=== PATIENT | female | born 1945 | race Caucasian/White ===

== ENCOUNTER 2018-06-05 09:23 | Outpatient (CLI) | payer BC | END 2018-06-05 09:24 | disposition home or self-care (01) | LOC: C.VASC 09:23 → C.PAT 09:24 | DX: N18.6 End stage renal disease (principal) ==

== ENCOUNTER 2018-06-10 06:32 | Day surgery (SDC) | payer BC ==
[2018-06-05 09:41] VITALS: BMI 22.0
[2018-06-10] MEDS ORDERED: ceFAZolin 1 gm in NS 1 GM/100 ML BAG IVPB ONE (07:05)
[2018-06-10] MEDS ORDERED: HEPARIN-NS 5,000 UNITS/500 ML 5,000 UNIT/500 ML BAG IV ONE (07:06)
[2018-06-10] MEDS ORDERED: Midazolam 2 MG/2 ML VIAL ONE (07:50)
[2018-06-10] MEDS ORDERED: Propofol 10 mg/ml Inj (20 ML) ONE (07:50)
[2018-06-10] MEDS ORDERED: Lidocaine Hydrochloride 5 ML INJ ONE (08:35)
[2018-06-10] MEDS ORDERED: Phenylephrine 10 mg/ml Inj ONE (08:35)
[2018-06-10] MEDS ORDERED: HYDROmorphone 0.5 mg/0.5 ml ISec IVP PRN (09:51)
--- NOTE | 2018-06-10 09:51 | PCM.SURG1 ---
Surgeon's Initial Post Op Note - Surgeon's Notes Surgeon: corey Olive Grader: 0 Type of Anesthesia: General LMA Anesthesia Administered By: jl Pre-Operative Diagnosis: renal failure Operative Findings: adequate vein. small artery Post-Operative Diagnosis: same Operation Performed: brachio cephalic av fistula left elbow Specimen/Specimens Removed: 0 Estimated Blood Loss: EBL {In ML}: 50 Blood Products Given: N/A Drains Used: No Drains Post-Op Condition: Good Date of Surgery/Procedure: 06/10/18 Time of Surgery/Procedure: 09:51
[2018-06-10 11:32] VITALS: BP 141/56; PULSE 85; RESP 18; TEMP 97; O2SAT 99
--- NOTE | 2018-06-10 18:58 | OP ---
PROCEDURE DATE: 06/10/2018 PREOPERATIVE DIAGNOSIS: Renal failure. POSTOPERATIVE DIAGNOSIS: Renal failure. PROCEDURE CARRIED OUT: Brachiocephalic fistula, left elbow. SURGEON: Clay Ren Jr., MD TYPING BOOKKEEPER: Resident. ANESTHESIOLOGIST: Dr. Jacobs. INDICATIONS: The patient is a 72-year-old woman with renal insufficiency, not yet on dialysis. OPERATIVE FINDINGS: A preoperative vein mapping did not reveal adequate veins with the fistula, nonetheless after the patient was anesthetized, particularly the cephalic vein system in the left arm appeared to be of decent size. The major problem was the artery, it was relatively small. Nonetheless, at the end of the procedure, we had a palpable pulse at the wrist and we had good flow through the fistula. DESCRIPTION OF PROCEDURE: The patient was given general anesthesia and intravenous antibiotics. The vein was marked out and the artery was marked adjacent to it. Anesthesia was given systemically, antibiotics were given systemically. We then made an incision. We anastomosed these in an end-to-side fashion using loupe magnification, heparin anticoagulation, and vessel loop control. At the end of the procedure, it was satisfactory. We then closed the wounds. Blood loss was less than 50 mL. Clay Ren Jr., MD cc: Juan Munoz MD
== END 2018-06-10 12:52 | disposition home or self-care (01) ==
LOC: C.SDS 06:32
PROVIDERS: ATTEND Surgery Vascular Surgery
DX: I12.0 Hypertensive chronic kidney disease with stage 5 chronic kidney disease or end stage renal disease (principal); N18.6 End stage renal disease
CPT/HCPCS: 36821; 82948; J0690; J1644; J2250; J2370; J2704; J3010